=== PATIENT | male | born 1995 | race African-American/Black ===

== ENCOUNTER 2020-04-29 06:20 | Emergency (ER) | payer MEDICAID ==
[~2020-04-29] VITALS: Ht 167.6 cm; Wt 57.6 kg
[2020-04-29 06:30] VITALS: BP 127/75
[2020-04-29] MEDS ORDERED: cefTRIAXone SODIUM 250 MG VL IM ONE (08:00)
[2020-04-29] MEDS ORDERED: AZITHROMYCIN 250 MG TAB PO ONE (08:00)
[2020-04-29 08:02] LABS: Urine Bacteria FEW /hpf (None Seen); Urine Blood Negative /uL (Negative); Urine Mucus FEW (None Seen); Urine Specific Gravity 1.025 (1.001-1.035); Urine WBC 27 /hpf (0 - 3)
== END 2020-04-29 08:25 | disposition home or self-care (01) ==
LOC: ER 06:20
DX: N39.0 Urinary tract infection, site not specified (principal); Z20.2 Contact with and (suspected) exposure to infections with a predominantly sexual mode of transmission
CPT/HCPCS: 81001; 96372; 99283; J0696